=== PATIENT | female | born 1990 | race African-American/Black ===

== ENCOUNTER 2023-04-03 09:37 | Emergency (ER) | payer SELFPAY ==
[2023-04-03] MEDS ORDERED: Ibuprofen 200 MG TAB ONE (10:40)
[2023-04-03] MEDS ORDERED: Ondansetron ODT 4 MG TAB ONE (10:41)
== END 2023-04-03 10:42 | disposition home or self-care (01) ==
LOC: CSHERS 09:37
DX: K52.9 Noninfective gastroenteritis and colitis, unspecified (principal); F17.200 Nicotine dependence, unspecified, uncomplicated
CPT/HCPCS: 99283; Q0162